=== PATIENT | female | born 1945 | race Caucasian/White ===

== ENCOUNTER 2019-04-16 09:54 | Emergency (ER) | payer MEDICARE, OTHER ==
[2019-04-16 10:12] VITALS: BP 132/76; PULSE 75
--- NOTE | 2019-04-16 11:48 | CR ---
Chest: 2 views of the chest were obtained. Comparison: No prior chest x-ray. Heart is mildly enlarged. Tortuous thoracic aorta is seen. Lungs are clear with no acute parenchymal change. Degenerative change is scattered within the spine. Impression: 1. Findings as noted above. Nothing acute is appreciated on 2 view chest x-ray. Diagnostic code #2
--- NOTE | 2019-04-16 12:12 | EDM.PDOC ---
ED HPI GENERAL MEDICAL PROBLEM - General Chief Complaint: Cardiovascular Problem Stated Complaint: LIGHTHEADED/WEAK Time Seen by Provider: 04/16/19 10:20 Source of Information: Reports: Patient History Limitations: Reports: No Limitations - History of Present Illness INITIAL COMMENTS - FREE TEXT/NARRATIVE: The patient presents with lightheadedness. She says this has been going on since this morning. It comes in waves. She denies chest pain or shortness of breath. She has no fever, chills, cough, abdominal pain, nausea or vomiting. She has no symptoms now. She says she felt like this when she got her stent in the past. She also had a history of atrial fib. She is on plavix and aspirin. Onset: Gradual Duration: Hour(s): Severity: Moderate Improves with: Reports: None Worsens with: Reports: None Associated Symptoms: Reports: No Other Symptoms - Related Data Allergies Allergy/AdvReac Type Severity Reaction Status Date / Time adhesive Allergy Rash Verified 04/16/19 10:12 Penicillins Allergy Rash Verified 04/16/19 10:12 meperidine HCl [From Demerol] AdvReac Drowsiness Verified 04/16/19 10:12 rosuvastatin calcium AdvReac Muscle Verified 04/16/19 10:12 [From Crestor] Aches simvastatin [From Zocor] AdvReac Muscle Verified 04/16/19 10:12 Aches Home Meds: Home Meds Aspirin [Eric Chewable Aspirin] 81 mg PO DAILY 10/28/14 [History] atorvaSTATin [Lipitor] 80 mg PO DAILY 10/28/14 [History] Levothyroxine [Levothroid] 137 mcg PO DAILY 12/26/14 [History] Aller Xt-Tree Pollen-Melaleuca [Melaleuca] 0 04/16/19 [History] Clopidogrel [Plavix] 75 mg PO DAILY 04/16/19 [History] Metoprolol Succinate 25 mg PO DAILY 04/16/19 [History] Past Medical History Other HEENT History: WEARS GLASSES Cardiovascular History: Reports: Stents Other Gastrointestinal History: RECTAL BLEEDING CURRENTLY Other Genitourinary History: URINARY FREQUENCY 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 Other Endocrine/Metabolic History: HYPOTHYROIDISM - Past Surgical History Other Musculoskeletal Surgeries/Procedures:: BILATERAL ESVIN Social & Family History - Tobacco Use Smoking Status *Q: Former Smoker Packs/Tins Daily: 1 Used Tobacco, but Quit: Yes Month/Year Tobacco Last Used: 10 years ago - Caffeine Use Caffeine Use: Reports: Coffee - Recreational Drug Use Recreational Drug Use: No ED ROS GENERAL - Review of Systems Review Of Systems: See Below Constitutional: Reports: No Symptoms HEENT: Reports: No Symptoms Respiratory: Reports: No Symptoms Cardiovascular: Reports: Lightheadedness. Denies: Chest Pain Endocrine: Reports: No Symptoms GI/Abdominal: Reports: No Symptoms : Reports: No Symptoms Musculoskeletal: Reports: No Symptoms ED EXAM, GENERAL - Physical Exam Exam: See Below Exam Limited By: No Limitations General Appearance: Alert, No Apparent Distress Ears: Normal External Exam Nose: Normal Inspection Head: Atraumatic, Normocephalic Neck: Normal Inspection Respiratory/Chest: No Respiratory Distress, Lungs Clear, Normal Breath Sounds Cardiovascular: No Edema, No Murmur, Irregularly Irregular GI/Abdominal: Soft, Non-Tender, No Organomegaly, No Mass Back Exam: Normal Inspection EKG INTERPRETATION EKG Date: 04/16/19 Time: 10:55 Rhythm: A-Fib Rate (Beats/Min): 69 [place]: Normal QRS: Normal ST-T: Normal QT: Normal Course - Vital Signs Last Recorded V/S: Last Vital Signs Temp 98.2 F 04/16/19 10:09 Pulse 75 04/16/19 10:09 Resp 16 04/16/19 10:09 BP 132/76 04/16/19 10:09 Pulse Ox 93 L 04/16/19 10:09 - Orders/Labs/Meds Orders: Active Orders 24 hr Category Date Time Status Cardiac Monitoring [RC] . DIRECTED Care 04/16/19 10:31 Active EKG 12 Lead [EKG Documentation Completion] [RC] STAT Care 04/16/19 10:24 Active Labs: Laboratory Tests 04/16/19 04/16/19 Range/Units 10:45 10:45 WBC 7.48 (3.98-10.04) K/mm3 RBC 4.92 (3.98-5.22) M/mm3 Hgb 15.1 (11.2-15.7) gm/dl Hct 45.8 H (34.1-44.9) % MCV 93.1 (79.4-94.8) fl MCH 30.7 (25.6-32.2) pg MCHC 33.0 (32.2-35.5) g/dl RDW Std Deviation 44.2 (36.4-46.3) fL Plt Count 222 (182-369) K/mm3 MPV 11.1 (9.4-12.3) fl Neut % (Auto) 61.9 (34.0-71.1) % Lymph % (Auto) 22.6 (19.3-51.7) % [place] % (Auto) 11.8 (4.7-12.5) % Eos % (Auto) 3.3 (0.7-5.8) Baso % (Auto) 0.3 (0.1-1.2) % Neut # (Auto) 4.63 (1.56-6.13) K/mm3 Lymph # (Auto) 1.69 (1.18-3.74) K/mm3 [place] # (Auto) 0.88 H (0.24-0.36) K/mm3 Eos # (Auto) 0.25 (0.04-0.36) K/mm3 Baso # (Auto) 0.02 (0.01-0.08) K/mm3 Sodium 141 (136-145) mEq/L Potassium 4.1 (3.5-5.1) mEq/L Chloride 104 (98-107) mEq/L Carbon Dioxide 28 (21-32) mEq/L Anion Gap 13.1 (5-15) BUN 17 (7-18) mg/dL Creatinine 0.9 (0.55-1.02) mg/dL Est Cr Clr Drug Dosing 50.09 mL/min Estimated GFR (MDRD) > 60 (>60) mL/min BUN/Creatinine Ratio 18.9 H (14-18) Glucose 91 (83-115) mg/dL Calcium 8.6 (8.5-10.1) mg/dL Total Bilirubin 0.6 (0.2-1.0) mg/dL AST 20 (15-37) U/L ALT 34 (14-59) U/L Alkaline Phosphatase 87 (46-116) U/L Troponin I < 0.017 (0.00-0.056) ng/mL Total Protein 6.4 (6.4-8.2) g/dl Albumin 3.3 L (3.4-5.0) g/dl Globulin 3.1 gm/dL Albumin/Globulin Ratio 1.1 (1-2) - Re-Assessments/Exams Free Text/Narrative Re-Assessment/Exam: 04/16/19 12:10 I ordered an EKG and labs. Her EKG shows atrial fib with no acute changes and at a normal rate. Her CBC and CMP look good. Her troponin is negative. 04/16/19 12:11 I am concerned her heart rate may be fast when she feels like this. I will get her on a holter monitor for a couple days. Departure - Departure Time of Disposition: 12:15 Disposition: Home, Self-Care 01 Condition: Good Clinical Impression: Lightheadedness Referrals: Mikayla Casas NP [Primary Care Provider] - 1 Week Additional Instructions: Wear the holter monitor for 48 hours. Take your medication as prescribed. Please return if you are worse. Follow up with your doctor within a week for results. - My Orders Last 24 Hours: My Active Orders 04/16/19 10:24 EKG 12 Lead [EKG Documentation Completion] [RC] STAT 04/16/19 10:31 Cardiac Monitoring [RC] . DIRECTED - Assessment/Plan Last 24 Hours: My Active Orders 04/16/19 10:24 EKG 12 Lead [EKG Documentation Completion] [RC] STAT 04/16/19 10:31 Cardiac Monitoring [RC] . DIRECTED
== END 2019-04-16 12:32 | disposition home or self-care (01) ==
LOC: JD.ED 09:54
DX: R42 Dizziness and giddiness (principal); I48.91 Unspecified atrial fibrillation; E03.9 Hypothyroidism, unspecified; Z88.5 Allergy status to narcotic agent; Z88.0 Allergy status to penicillin; Z88.8 Allergy status to other drugs, medicaments and biological substances; Z91.048 Other nonmedicinal substance allergy status; Z79.02 Long term (current) use of antithrombotics/antiplatelets; Z79.82 Long term (current) use of aspirin; Z79.890 Hormone replacement therapy; Z87.891 Personal history of nicotine dependence; Z95.5 Presence of coronary angioplasty implant and graft
CPT/HCPCS: 36415; 71046; 71046-26; 80053; 84484; 85025; 93005; 93010; 93225; 93226; 99283; 99284-25

== ENCOUNTER 2019-06-07 08:50 | Emergency (ER) | payer MEDICARE, OTHER ==
[2019-06-07 09:20] VITALS: PULSE 88
--- NOTE | 2019-06-07 09:54 | EDM.PDOC ---
ED HPI GENERAL MEDICAL PROBLEM - General Chief Complaint: Chest Pain Stated Complaint: CHEST PAIN Time Seen by Provider: 06/07/19 09:40 Source of Information: Reports: Patient History Limitations: Reports: No Limitations - History of Present Illness INITIAL COMMENTS - FREE TEXT/NARRATIVE: 74-year-old female presents to the ED for evaluation of some shortness of breath with a pleuritic chest pain component. Can't take a full deep breath. This morning chest pain seemed to get worse and radiate from the pit of the stomach up into her neck and throat. She is not prone to reflux disease. 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 Only medication change was discontinuation of Plavix and switched to Eliquis 10mg daily. She remains in atrial fibrillation on the monitor. She is aware of palpitations intermittently. Some dizziness and lightheadedness with standing at times as well. While in hospital she was told that she had pneumonia on her x -ray but was never treated with any antibiotics and never had a cough or sputum production. She denies any fevers. Onset: Gradual Onset Date: 05/25/19 Duration: Day(s):, Getting Worse Location: Reports: Chest (Central chest pressure discomfort rating up into her neck and throat not through to her back.), Other (Pleuritic component to her pain and she can't take a full deep breath.) Quality: Reports: Ache (Describes the discomfort as an aching pressure discomfort) Severity: Moderate (with pleurisy-like pain on deep inspiration) Improves with: Reports: Rest Worsens with: Reports: Other (Worse with standing and) Context: Denies: Activity (Walking.), Exercise, Lifting, Sick Contact, Trauma, Other Associated Symptoms: Reports: Chest Pain (Minimal with no production of sputum.) , Cough, Loss of Appetite, Malaise, Shortness of Breath, Weakness. Denies: No Other Symptoms ( I see history of present illness), Confusion, cough w sputum, Diaphoresis, Fever/Chills, Headaches, Nausea/Vomiting, Rash, Seizure, Syncope Treatments COAL CAGER: Reports: Other (see below) (None.) - Related Data Allergies Allergy/AdvReac Type Severity Reaction Status Date / Time adhesive Allergy Rash Verified 04/16/19 10:12 Penicillins Allergy Rash Verified 04/16/19 10:12 tramadol Allergy Nausea Verified 06/07/19 09:10 meperidine HCl [From Demerol] AdvReac Drowsiness Verified 04/16/19 10:12 rosuvastatin calcium AdvReac Muscle Verified 04/16/19 10:12 [From Crestor] Aches simvastatin [From Zocor] AdvReac Muscle Verified 04/16/19 10:12 Aches Home Meds: Home Meds Aspirin [Eric Chewable Aspirin] 81 mg PO DAILY 10/28/14 [History] atorvaSTATin [Lipitor] 80 mg PO DAILY 10/28/14 [History] Levothyroxine [Levothroid] 137 mcg PO DAILY 12/26/14 [History] Metoprolol Succinate 25 mg PO DAILY 04/16/19 [History] Apixaban [Eliquis] 10 mg PO DAILY 06/07/19 [History] Glucosamine/D3/Boswellia Marlene [Osteo Bi-Flex Caplet] 1 cap PO DAILY 06/07/19 [ History] Lutein/Minerals/Vit A,C & E [Ocuvite] 1 tab PO DAILY 06/07/19 [History] Multivit-Min/Iron/Folic/Lutein [Centrum Silver Women Tablet] 1 tab PO DAILY 09/21 [History] Mvmn/FA/Ala/Q10/L.aci,B.br,Richie [Vitabex Plus Capsule] 1 tab PO DAILY 06/07/19 [ History] predniSONE [Prednisone] 20 mg PO ASDIRECTED #14 tablet 06/07/19 [Rx] Past Medical History Other HEENT History: WEARS GLASSES Cardiovascular History: Reports: Afib (Recently started on Eliquis.), Pacemaker (Placed May [id number] due to persistent bradycardia i.e. 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 Endocrine/Metabolic History: Reports: Hypothyroidism Other Endocrine/Metabolic History: HYPOTHYROIDISM Hematologic History: Reports: Anticoagulation Therapy - Past Surgical History Cardiovascular Surgical History: Reports: Pacer Other Musculoskeletal Surgeries/Procedures:: BILATERAL ESVIN Social & Family History - Tobacco Use Smoking Status *Q: Former Smoker Years of Tobacco use: 50 Used Tobacco, but Quit: Yes Month/Year Tobacco Last Used: 10 years ago Second Hand Smoke Exposure: No - Caffeine Use Caffeine Use: Reports: Coffee - Recreational Drug Use Recreational Drug Use: No - Living Situation & Occupation Living situation: Reports: Occupation: Retired ED ROS GENERAL - Review of Systems Review Of Systems: See Below Constitutional: Reports: Malaise, Weakness, Fatigue, Decreased Appetite. Denies : Fever, Chills HEENT: Reports: Glasses Respiratory: Reports: Shortness of Breath, Pleuritic Chest Pain, Cough. Denies : Wheezing Cardiovascular: Reports: Chest Pain (Nonproductive), Blood Pressure Problem ( see history of present illness), Dyspnea on Exertion. Denies: Claudication, Edema, Lightheadedness, Orthopnea Endocrine: Reports: Fatigue GI/Abdominal: Reports: No Symptoms, Other (No odynophagia.) : Reports: No Symptoms Musculoskeletal: Reports: Joint Pain Skin: Reports: No Symptoms (Knees hips low back at times) Neurological: Reports: No Symptoms Psychiatric: Reports: No Symptoms Hematologic/Lymphatic: Reports: No Symptoms ED EXAM, GENERAL - Physical Exam Exam: See Below Exam Limited By: No Limitations General Appearance: Alert, WD/WN, No Apparent Distress, Other (Foci since to 36.8. Weight is 88 but atrial fibrillation on the monitor. O2 sats are 93% on room air. Respiratory rate of 18 BP elevated 150 10/04/00.) Eye Exam: Bilateral Eye: Normal Inspection (No scleral icterus or peripheral pallor.) Throat/Mouth: Normal Inspection, Normal Lips, Normal Oropharynx Head: Atraumatic, Normocephalic Neck: Normal Inspection, Supple, Non-Tender, Full Range of Motion. No: Carotid Bruit, Lymphadenopathy (L), Lymphadenopathy (R) Respiratory/Chest: No Respiratory Distress, No Accessory Muscle Use, Chest Non- Tender, Rales (Right lung base.), Other (Pacemaker insertion site looks good. There are a few Steri-Strips still over the wound but there is very little bruising. The area is nontender to palpation.) Cardiovascular: Normal Peripheral Pulses, Regular Rate, Rhythm, No Gallop, No Murmur, No Rub Peripheral Pulses: 2+: Posterior Tibial (L), Posterior Tibial (R), Dorsalis Pedis (L), Dorsalis Pedis (R) GI/Abdominal: Normal Bowel Sounds, Soft, Non-Tender, No Organomegaly, No Abnormal Bruit, No Mass, Pelvis Stable, Other (Infraumbilical midline incision where she had lumbar back fusion.) Back Exam: Normal Inspection, Full Range of Motion. No: CVA Tenderness (L), CVA Tenderness (R) Extremities: Normal Inspection, Normal Range of Motion, Non-Tender, Pedal Edema (Trace pedal edema right ankle and foot.) Neurological: Alert, Oriented, CN II-XII Intact, Normal Cognition, Normal Gait Psychiatric: Normal Affect, Normal Mood Skin Exam: Warm, Dry, Intact, Normal Color, No Rash EKG INTERPRETATION EKG Date: 06/07/19 Time: 08:58 Rhythm: A-Fib (With rate of 75-1 22/m) Rate (Beats/Min): 86 P-Wave: Absent QRS: Other (RSR prime wave in V1 and V2 consider normal variant) ST-T: Other (Diffuse T-wave changes in both precordial and limb leads with baseline wandering.) EKG Interpretation Comments: Abnormal ECG Course - Vital Signs Last Recorded V/S: Last Vital Signs Temp 36.8 C 06/07/19 09:11 Pulse 88 06/07/19 09:11 Resp 18 06/07/19 09:11 BP 117/85 06/07/19 10:16 Pulse Ox 93 L 06/07/19 09:11 - Orders/Labs/Meds Orders: Active Orders 24 hr Category Date Time Status EKG 12 Lead [EKG Documentation Completion] [RC] STAT Care 06/07/19 09:32 Active Peripheral IV Care [RC] . DIRECTED Care 06/07/19 10:01 Active Sodium Chloride 0.9% [Saline Flush] Med 06/07/19 10:01 Active 10 ml FLUSH ASDIRECTED PRN Peripheral IV Insertion Adult [OM.PC] Stat Oth 06/07/19 10:01 Ordered Medication Orders Sodium Chloride (Saline Flush) 10 ml FLUSH ASDIRECTED PRN PRN Reason: Keep Vein Open Labs: Laboratory Tests 06/07/19 06/07/19 06/07/19 Range/Units 10:00 10:00 10:00 WBC 9.50 (3.98-10.04) K/mm3 RBC 4.65 (3.98-5.22) M/mm3 Hgb 14.4 (11.2-15.7) gm/dl Hct 44.1 (34.1-44.9) % MCV 94.8 (79.4-94.8) fl MCH 31.0 (25.6-32.2) pg MCHC 32.7 (32.2-35.5) g/dl RDW Std Deviation 44.7 (36.4-46.3) fL Plt Count 222 (182-369) K/mm3 MPV 10.9 (9.4-12.3) fl Neut % (Auto) 72.2 H (34.0-71.1) % Lymph % (Auto) 14.9 L (19.3-51.7) % [place] % (Auto) 9.8 (4.7-12.5) % Eos % (Auto) 2.7 (0.7-5.8) Baso % (Auto) 0.2 (0.1-1.2) % Neut # (Auto) 6.85 H (1.56-6.13) K/mm3 Lymph # (Auto) 1.42 (1.18-3.74) K/mm3 [place] # (Auto) 0.93 H (0.24-0.36) K/mm3 Eos # (Auto) 0.26 (0.04-0.36) K/mm3 Baso # (Auto) 0.02 (0.01-0.08) K/mm3 D-Dimer, Quantitative 0.48 (0.19-0.50) mg/L Sodium (136-145) mEq/L Potassium (3.5-5.1) mEq/L Chloride (98-107) mEq/L Carbon Dioxide (21-32) mEq/L Anion Gap (5-15) BUN (7-18) mg/dL Creatinine (0.55-1.02) mg/dL Est Cr Clr Drug Dosing mL/min Estimated GFR (MDRD) (>60) mL/min BUN/Creatinine Ratio (14-18) Glucose (83-115) mg/dL Calcium (8.5-10.1) mg/dL Magnesium 2.2 (1.8-2.4) mg/dl Total Bilirubin (0.2-1.0) mg/dL AST (15-37) U/L ALT (14-59) U/L Alkaline Phosphatase (46-116) U/L CK-MB (CK-2) 1.0 (0-3.6) ng/ml Troponin I < 0.017 (0.00-0.056) ng/mL C-Reactive Protein < 0.2 (<1.0) mg/dL NT-Pro-B Natriuret Pep (0-125) pg/mL Total Protein (6.4-8.2) g/dl Albumin (3.4-5.0) g/dl Globulin gm/dL Albumin/Globulin Ratio (1-2) TSH 3rd Generation 0.614 (0.358-3.74) uIU/mL 06/07/19 06/07/19 Range/Units 10:00 10:00 WBC (3.98-10.04) K/mm3 RBC (3.98-5.22) M/mm3 Hgb (11.2-15.7) gm/dl Hct (34.1-44.9) % MCV (79.4-94.8) fl MCH (25.6-32.2) pg MCHC (32.2-35.5) g/dl RDW Std Deviation (36.4-46.3) fL Plt Count (182-369) K/mm3 MPV (9.4-12.3) fl Neut % (Auto) (34.0-71.1) % Lymph % (Auto) (19.3-51.7) % [place] % (Auto) (4.7-12.5) % Eos % (Auto) (0.7-5.8) Baso % (Auto) (0.1-1.2) % Neut # (Auto) (1.56-6.13) K/mm3 Lymph # (Auto) (1.18-3.74) K/mm3 [place] # (Auto) (0.24-0.36) K/mm3 Eos # (Auto) (0.04-0.36) K/mm3 Baso # (Auto) (0.01-0.08) K/mm3 D-Dimer, Quantitative (0.19-0.50) mg/L Sodium 142 (136-145) mEq/L Potassium 4.2 (3.5-5.1) mEq/L Chloride 104 (98-107) mEq/L Carbon Dioxide 26 (21-32) mEq/L Anion Gap 16.2 H (5-15) BUN 14 (7-18) mg/dL Creatinine 0.9 (0.55-1.02) mg/dL Est Cr Clr Drug Dosing 48.07 mL/min Estimated GFR (MDRD) > 60 (>60) mL/min BUN/Creatinine Ratio 15.6 (14-18) Glucose 90 (83-115) mg/dL Calcium 9.4 (8.5-10.1) mg/dL Magnesium (1.8-2.4) mg/dl Total Bilirubin 0.6 (0.2-1.0) mg/dL AST 24 (15-37) U/L ALT 29 (14-59) U/L Alkaline Phosphatase 97 (46-116) U/L CK-MB (CK-2) (0-3.6) ng/ml Troponin I (0.00-0.056) ng/mL C-Reactive Protein (<1.0) mg/dL NT-Pro-B Natriuret Pep 87 (0-125) pg/mL Total Protein 6.9 (6.4-8.2) g/dl Albumin 3.6 (3.4-5.0) g/dl Globulin 3.3 gm/dL Albumin/Globulin Ratio 1.1 (1-2) TSH 3rd Generation (0.358-3.74) uIU/mL Meds: Medications Generic Name Dose Route Start Last Admin Trade Name Freq PRN Reason Stop Dose Admin Sodium Chloride 10 ml 06/07/19 10:01 Saline Flush FLUSH ASDIRECTED PRN Keep Vein Open Discontinued Medications Generic Name Dose Route Start Last Admin Trade Name Freq PRN Reason Stop Dose Admin Ketorolac Tromethamine 60 mg 06/07/19 12:38 06/07/19 12:44 Toradol IM 06/07/19 12:39 60 mg ONETIME ONE Administration Prednisone 20 mg 06/07/19 12:39 06/07/19 12:44 Prednisone PO 06/07/19 12:40 20 mg ONETIME ONE Administration - Radiology Interpretation Free Text/Narrative:: 74-year-old female presents to the ED with some shortness of breath and some central chest pain discomfort off and on for the last several days. Worse this morning. Seem to radiate up into her throat this morning. No odynophagia and no real GERD symptoms. She has chronic atrial fibrillation and was recently switched from Plavix to Eliquis after having pacemaker inserted left upper anterior chest for bradycardia. She's not aware of the pacemaker firing. Current rhythm on ECG is atrial fibrillation with a rate of 75-1 22/m. Baseline rate however is in the 80s. There are few crackles in the right lung base. O2 sats are 93% on room air. Plan saline lock. Plan routine labs including cardiac markers and d-dimer. Serum magnesium and TSH to be done as well. She states her thyroid medication was reduced about 2 months ago. BNP to be done as well. One chest x-ray - Re-Assessments/Exams Free Text/Narrative Re-Assessment/Exam: 06/07/19 10:12 chest x-ray reveals poor inspiratory view. There is slight haziness in the left costophrenic angle cannot rule out a little bit of fluid in this area. Pacemaker left upper anterior chest. Headache silhouette is upper limits of normal in size magnified by portable technique. Visualized portion of the lungs appear clear. 06/07/19 11:49 Labs reveal a normal white count at 9.50. Auto differential shows 72.2% neutrophils. Hemoglobin is 14.4 with hematocrit of 44.1. Platelet count 222,000. D-dimer is 0.48. Magnesium is 2.2 CK-MB fraction 1.0 troponin I is less than 0.017 C-reactive protein is less than 0.2. BNP is 87 TSH is 0.614 06/07/19 12:30 Chemistry is now back showing a normal sodium of 142. Potassium is 4.2. Chloride 104 the bicarbonate 26. Anion gap is 16.2 slightly elevated. BUN is 14 with a creatinine of 0.9. GFR is greater than 60. Glucose is 90 with a calcium of 9.4 magnesium is 2.2 there are function is normal CK-MB fraction is 1.0 06/07/19 12:41 and went over the findings of the labs which were all normal. Chest x-ray is within normal limits essentially as well. Her atrial fibrillation rate seems to be well-controlled at rest in the 80s and perhaps 95 range. She is complaining of diffuse chest discomfort however. It appears to be chest wall in origin pleuritic-like. She cannot take anti-inflammatories because she is on Eliquis. I will give her 1 dose of Toradol IM since an IV never did get started. Even 60 mg IM. We'll also give her prednisone 20 mg by mouth. Difficulty in finding medication to control her pain. Tramadol has caused extensive nausea and vomiting and postoperative answer some likely to do the same. 06/07/19 13:58 patient is feeling better still has some pain in her chest but overall 70% improved. I'm reluctant to send her home on any pain medicine because almost all of them make her very nauseated. She will use Tylenol. Going to place her on a short course of prednisone 20 mg twice a day for 5 days and then 1 tablet in morning only for another 4 days to see if we can reduce the inflammation in her chest as it's almost pleuritic in nature. She will return to the ED or follow up with her personal care physician if not getting better. 40-72 hours. Departure - Departure Time of Disposition: 14:00 Disposition: Home, Self-Care 01 Condition: Fair Clinical Impression: Non-cardiac chest pain, Acute chest wall pain - Discharge Information *PRESCRIPTION DRUG MONITORING PROGRAM REVIEWED*: Not Applicable *COPY OF PRESCRIPTION DRUG MONITORING REPORT IN PATIENT DAISY: Not Applicable Prescriptions: predniSONE [Prednisone] 20 mg PO ASDIRECTED #14 tablet Instructions: Nonspecific Chest Pain, [id number] Referrals: Mikayla Casas NP [Primary Care Provider] - Forms: ED Department Discharge Additional Instructions: Evaluation the emergency room this morning in regards to diffuse chest pain with a pleuritic component meaning it's worsened by deep breathing. X-ray shows no signs of infection although is a poor inspirational view. Tests revealed no evidence of heart related illness with normal cardiac markers and also negative testing for any blood clots in the lung. There is no extra fluid buildup in the lungs or heart failure. It appears that the pain is chest wall in origin or inflammation of the lung lining. This most often is viral in origin. Due to problems with nausea and vomiting from pain medication it is felt that Tylenol 650 mg every 6 hours is okay to relieve pain. I have placed her on a course of prednisone 20 mg twice daily for 5 days with breakfast and supper and then once in the morning again for another 5 days to relieve inflammation in the chest wall. This medication is safe to take with your blood thinner Eliquis. Expect gradual improvement over the next 36-48 hours as the prednisone begins to work its anti-inflammatory effect. If not markedly improved in 72 hours you should be seen again by her personal care physician or return to the ED. - My Orders Last 24 Hours: My Active Orders 06/07/19 09:32 EKG 12 Lead [EKG Documentation Completion] [RC] STAT 06/07/19 10:01 Peripheral IV Care [RC] . DIRECTED Sodium Chloride 0.9% [Saline Flush] 10 ml FLUSH ASDIRECTED PRN Peripheral IV Insertion Adult [OM.PC] Stat - Assessment/Plan Last 24 Hours: My Active Orders 06/07/19 09:32 EKG 12 Lead [EKG Documentation Completion] [RC] STAT 06/07/19 10:01 Peripheral IV Care [RC] . DIRECTED Sodium Chloride 0.9% [Saline Flush] 10 ml FLUSH ASDIRECTED PRN Peripheral IV Insertion Adult [OM.PC] Stat
[2019-06-07] MEDS ORDERED: Sodium Chloride 0.9% 10 ML Syringe FLUSH PRN (10:01)
[2019-06-07 10:17] VITALS: BP 117/85
--- NOTE | 2019-06-07 10:50 | CR ---
Chest: Portable view of the chest was obtained. Comparison: Prior chest x-ray of 04/16/19. Heart size and mediastinum are within normal limits for portable technique. Bichamber pacemaker is noted which is an interval change from previous exam. Lungs are clear with no acute parenchymal change. Mild scoliosis is noted within the spine. Impression: 1. Findings as noted above. 2. Nothing acute is appreciated on portable chest x-ray. Diagnostic code #2 This report was dictated in [place] Standard Time
[2019-06-07] MEDS ORDERED: Ketorolac 60 MG/2 ML SDV IM ONE (12:38)
[2019-06-07] MEDS ORDERED: predniSONE 20 MG Tab PO ONE (12:39)
== END 2019-06-07 14:20 | disposition home or self-care (01) ==
LOC: JD.ED 08:50
DX: R07.89 Other chest pain (principal); I48.20 Chronic atrial fibrillation, unspecified; E03.9 Hypothyroidism, unspecified; Z88.5 Allergy status to narcotic agent; Z88.0 Allergy status to penicillin; Z88.8 Allergy status to other drugs, medicaments and biological substances; Z91.048 Other nonmedicinal substance allergy status; Z79.01 Long term (current) use of anticoagulants; Z95.5 Presence of coronary angioplasty implant and graft; Z95.0 Presence of cardiac pacemaker; Z79.890 Hormone replacement therapy; Z79.899 Other long term (current) drug therapy; Z79.82 Long term (current) use of aspirin; Z87.891 Personal history of nicotine dependence
CPT/HCPCS: 36415; 71045; 80053; 82553; 83735; 83880; 84443; 84484; 85025; 85379; 86140; 93005; 96372; 99285; A9270; J1885; 93010; 99284

== ENCOUNTER 2021-05-03 19:50 | Emergency (ER) | payer MEDICARE, OTHER ==
[2021-05-03 20:16] VITALS: BP 118/70; PULSE 60
--- NOTE | 2021-05-03 20:52 | EDM.PDOC ---
ED HPI GENERAL MEDICAL PROBLEM - General Chief Complaint: General Stated Complaint: BLOOD IN STOOLS Time Seen by Provider: 05/03/21 20:58 - History of Present Illness INITIAL COMMENTS - FREE TEXT/NARRATIVE: 76-year-old female presents the emergency room with rectal bleeding. Patient states she has had rectal bleeding on and off for the last couple of days but it became really prominent bright red. Patient knows she has hemor rhoids. Patient is also on Eliquis 5 mg twice daily she has been on Eliquis for 3 years she was placed on it for atrial fibrillation. She denies any nausea or vomiting. Patient does have problems with being lightheaded with change of position and she is having some weakness at this time. She has no other complaints at this time. Abdomen Pain Score (Numeric/FACES): 10 - Related Data Allergies Allergy/AdvReac Type Severity Reaction Status Date / Time adhesive Allergy Rash Verified 04/16/19 10:12 Penicillins Allergy Rash Verified 04/16/19 10:12 tramadol Allergy Nausea Verified 06/07/19 09:10 meperidine HCl [From Demerol] AdvReac Drowsiness Verified 04/16/19 10:12 rosuvastatin calcium AdvReac Muscle Verified 04/16/19 10:12 [From Crestor] Aches simvastatin [From Zocor] AdvReac Muscle Verified 04/16/19 10:12 Aches Home Meds: Home Meds Aspirin [Eric Chewable Aspirin] 81 mg PO DAILY 10/28/14 [History] atorvaSTATin [Lipitor] 80 mg PO DAILY 10/28/14 [History] Levothyroxine [Levothroid] 125 mcg PO DAILY 12/26/14 [History] Apixaban [Eliquis] 5 mg PO BID 06/07/19 [History] Glucosamine/D3/Boswellia Marlene [Osteo Bi-Flex Caplet] 2 cap PO DAILY 06/07/19 [History] Lutein/Minerals/Vit A,C & E [Ocuvite] 1 tab PO DAILY 06/07/19 [History] Multivit-Min/Iron/Folic/Lutein [Centrum Silver Women Tablet] 1 tab PO DAILY 06/07/19 [History] Chlorhexidine Gluconate [Peridex 0.12% Rinse] 1 capful PO DAILY 05/03/21 [History] Cholecalciferol (Vitamin D3) [Vitamin D3] 125 mcg PO DAILY 05/03/21 [History] Diltiazem [Cardizem CD] 120 mg PO DAILY 05/03/21 [History] Lysine HCl [l-Lysine] 1 tab PO DAILY 05/03/21 [History] [place]-3S/DHA/Epa/Fish Oil/D3 [[place]-3 + D Softgel] 1 tab PO DAILY 05/03/21 [History] Omeprazole 20 mg PO DAILY 05/03/21 [History] Soft Mint 1 tab PO BEDTIME 05/03/21 [History] [place] V2 1 tab PO BID 05/03/21 [History] Ubidecarenone [Coq-10] 400 mg PO DAILY 05/03/21 [History] Past Medical History Other HEENT History: WEARS GLASSES Cardiovascular History: Reports: Afib, Pacemaker, Stents Other Cardiovascular History: bradycardia Other Respiratory History: recent dx of pneumonia Other Gastrointestinal History: RECTAL BLEEDING CURRENTLY Other Genitourinary History: URINARY FREQUENCY 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 Endocrine/Metabolic History: Reports: Hypothyroidism Other Endocrine/Metabolic History: HYPOTHYROIDISM Hematologic History: Reports: Anticoagulation Therapy - Infectious Disease History Infectious Disease History: Reports: Chicken Pox - Past Surgical History Cardiovascular Surgical History: Reports: Pacer Other Musculoskeletal Surgeries/Procedures:: BILATERAL ESVIN Social & Family History - Tobacco Use Tobacco Use Status *Q: Former Tobacco User Used Tobacco, but Quit: Yes Month/Year Tobacco Last Used: 2008 - Caffeine Use Caffeine Use: Reports: Coffee - Recreational Drug Use Recreational Drug Use: Yes Recreational Drug Type: Reports: Marijuana/Hashish Recreational Drug Use Frequency: Rarely - Living Situation & Occupation Living situation: Reports: Occupation: Retired ED ROS GENERAL - Review of Systems Review Of Systems: See Below Constitutional: Reports: No Symptoms, Weakness, Fatigue. Denies: Fever, Chills HEENT: Reports: No Symptoms Respiratory: Reports: No Symptoms Cardiovascular: Reports: No Symptoms Endocrine: Reports: No Symptoms GI/Abdominal: Reports: No Symptoms : Reports: No Symptoms Musculoskeletal: Reports: No Symptoms Skin: Reports: No Symptoms Neurological: Reports: No Symptoms Hematologic/Lymphatic: Reports: Easy Bleeding (Secondary to anticoagulation therapy) ED EXAM, GENERAL - Physical Exam Exam: See Below Exam Limited By: No Limitations General Appearance: Alert, No Apparent Distress Head: Atraumatic, Normocephalic Neck: Normal Inspection, Supple, Non-Tender, Full Range of Motion Respiratory/Chest: No Respiratory Distress, Lungs Clear, Normal Breath Sounds Cardiovascular: Regular Rate, Rhythm, No Edema, No Murmur GI/Abdominal: Normal Bowel Sounds, Soft, Non-Tender Rectal (Female) Exam: Heme + Stool, Hemorrhoids (Significant external hemorrhoids she may well have a fissure as well.) Back Exam: Normal Inspection. No: CVA Tenderness (L), CVA Tenderness (R) Neurological: Alert, Oriented, Normal Cognition Course - Vital Signs Last Recorded V/S: Last Vital Signs Temp 36.4 C 05/03/21 20:14 Pulse 60 05/03/21 20:14 Resp 20 05/03/21 20:14 BP 118/70 05/03/21 20:14 Pulse Ox 91 L 05/03/21 20:14 - Orders/Labs/Meds Orders: Active Orders 24 hr Category Date Time Status KUB [Abdomen 1V Flat] [CR] Stat Exams 05/03/21 21:16 Taken Potassium Chloride [Klor-Con M20] Med 05/04/21 21:00 Ordered 40 meq PO BEDTIME Medication Orders Potassium Chloride (Potassium Chloride 20 Meq Tab.Er) 40 meq PO BEDTIME YOLY Labs: Laboratory Tests 05/03/21 05/03/21 05/03/21 Range/Units 21:30 21:30 21:30 WBC 6.41 (3.98-10.04) K/mm3 RBC 4.25 (3.98-5.22) M/mm3 Hgb 13.1 (11.2-15.7) gm/dl Hct 40.6 (34.1-44.9) % MCV 95.5 H (79.4-94.8) fl MCH 30.8 (25.6-32.2) pg MCHC 32.3 (32.2-35.5) g/dl RDW Std Deviation 45.3 (36.4-46.3) fL Plt Count 243 (182-369) K/mm3 MPV 10.4 (9.4-12.3) fl Neut % (Auto) 65.0 (34.0-71.1) % Lymph % (Auto) 20.6 (19.3-51.7) % [place]offey % (Auto) 11.4 (4.7-12.5) % Eos % (Auto) 2.5 (0.7-5.8) Baso % (Auto) 0.2 (0.1-1.2) % Neut # (Auto) 4.17 (1.56-6.13) K/mm3 Lymph # (Auto) 1.32 (1.18-3.74) K/mm3 [place]y # (Auto) 0.73 H (0.24-0.36) K/mm3 Eos # (Auto) 0.16 (0.04-0.36) K/mm3 Baso # (Auto) 0.01 (0.01-0.08) K/mm3 PT 10.9 (9.7-12.0) SECONDS INR 0.98 APTT 30.5 (21.7-31.4) SECONDS Sodium 141 (136-145) mEq/L Potassium 3.3 L (3.5-5.1) mEq/L Chloride 105 (98-107) mEq/L Carbon Dioxide 30 (21-32) mEq/L Anion Gap 9.3 (5-15) BUN 13 (7-18) mg/dL Creatinine 0.8 (0.55-1.02) mg/dL Est Cr Clr Drug Dosing 52.47 mL/min Estimated GFR (MDRD) > 60 (>60) mL/min BUN/Creatinine Ratio 16.3 (14-18) Glucose 96 (70-99) mg/dL Calcium 8.0 L (8.5-10.1) mg/dL Total Bilirubin 0.6 (0.2-1.0) mg/dL AST 17 (15-37) U/L ALT 20 (14-59) U/L Alkaline Phosphatase 68 (46-116) U/L Total Protein 6.2 L (6.4-8.2) g/dl Albumin 2.8 L (3.4-5.0) g/dl Globulin 3.4 gm/dL Albumin/Globulin Ratio 0.8 L (1-2) Meds: Medications Generic Name Dose Route Start Last Admin Trade Name Freq PRN Reason Stop Dose Admin Potassium Chloride 40 meq 05/04/21 21:00 Potassium Chloride 20 Meq Tab.Er PO BEDTIME YOLY - Re-Assessments/Exams Free Text/Narrative Re-Assessment/Exam: 05/03/21 22:51 Is reviewed hemoglobin hematocrit stable potassium is a little low we will give 40 mEq of oral potassium. After rectal exam I think she would benefit from sitz bath's four times a day Preparation H after every BM and 1% hydrocortisone cream twice daily. Departure - Departure Time of Disposition: 22:52 Disposition: Home, Self-Care 01 Clinical Impression: Hemorrhoids - Discharge Information Referrals: Alba Rodriguez [facility] [Primary Care Provider] - Forms: ED Department Discharge Additional Instructions: Return to the emergency room with any questions problems or worsening symptoms. Sitz baths and warm Epson salt solution every 4-6 hours minimum four times a day. Use Preparation H after every BM and every sitz bath. Use 1% hydrocortisone cream twice daily for 7 days. Follow-up in the clinic for recheck this next week. Sepsis Event Note (ED) - Focused Exam Vital Signs: Vital Signs Temp Pulse Resp BP Pulse Ox 05/03/21 20:14 36.4 C 60 20 118/70 91 L - My Orders Last 24 Hours: My Active Orders 05/03/21 21:16 KUB [Abdomen 1V Flat] [CR] Stat 05/04/21 21:00 Potassium Chloride [Klor-Con M20] 40 meq PO BEDTIME - Assessment/Plan Last 24 Hours: My Active Orders 05/03/21 21:16 KUB [Abdomen 1V Flat] [CR] Stat 05/04/21 21:00 Potassium Chloride [Klor-Con M20] 40 meq PO BEDTIME
[2021-05-03] MEDS ORDERED: Potassium Chloride 20 MEQ Tab.ER PO ONE (22:51)
--- NOTE | 2021-05-04 07:01 | CR ---
Abdomen: Supine view of the abdomen was obtained. Comparison: Sat Instructor film for barium enema study dated 12/27/14. Bilateral hip prostheses are noted. Degenerative change is seen within the spine with prior lumbar spine surgery. Bowel gas pattern appears within normal limits. Phleboliths are seen within the pelvis. Questionable calcifications overlying the left kidney are seen possibly due to nonobstructing renal calculi. Slight bony density is seen off the lateral left iliac wing compatible with old injury. Impression: 1. Probable chronic findings as noted above. 2. Nothing acute is seen. Diagnostic code #2
[2021-05-04] MEDS ORDERED: Potassium Chloride 20 MEQ Tab.ER PO SCH (21:00)
== END 2021-05-03 23:00 | disposition home or self-care (01) ==
LOC: JD.ED 19:50
DX: K64.4 Residual hemorrhoidal skin tags (principal); I48.91 Unspecified atrial fibrillation; E03.9 Hypothyroidism, unspecified; Z95.0 Presence of cardiac pacemaker; Z88.0 Allergy status to penicillin; Z88.5 Allergy status to narcotic agent; Z91.048 Other nonmedicinal substance allergy status; Z88.8 Allergy status to other drugs, medicaments and biological substances; Z79.899 Other long term (current) drug therapy; Z79.82 Long term (current) use of aspirin; Z79.01 Long term (current) use of anticoagulants; Z87.891 Personal history of nicotine dependence
CPT/HCPCS: 36415; 74018; 80053; 85025; 85610; 85730; 99283; A9270

== ENCOUNTER → 2021-10-10 | Day surgery (SDC) | payer MEDICARE, OTHER ==
[~2021-10-10] MED LIST: Bupivacaine 0.25% 10 ML SDV ONE; Lactated Ringers 1,000 ML IV SCH; Lidocaine 1% 6 ML ONE; Lidocaine 1%/Sod Bicarbonate in NS 8.4% 1 ML Syringe IDERM PRN; Sodium Chloride 0.9% 10 ML Syringe FLUSH PRN; Sodium Chloride 0.9% 10 ML Syringe FLUSH SCH; ceFAZolin 2 GM in Sodium Chloride 0.9% 50 ML IV SCH
[2021-10-10 07:36] VITALS: BP 134/67; PULSE 68
== END | disposition home or self-care (01) ==
LOC: JD.SDS 06:26
PROVIDERS: ATTEND Orthopaedic Surgery
DX: M65.841 Other synovitis and tenosynovitis, right hand (principal); I48.0 Paroxysmal atrial fibrillation; E03.9 Hypothyroidism, unspecified; J06.9 Acute upper respiratory infection, unspecified; R06.83 Snoring; R53.83 Other fatigue; E78.5 Hyperlipidemia, unspecified; Z79.899 Other long term (current) drug therapy; Z79.890 Hormone replacement therapy; Z88.0 Allergy status to penicillin; Z88.8 Allergy status to other drugs, medicaments and biological substances; Z98.890 Other specified postprocedural states; Z87.891 Personal history of nicotine dependence
CPT/HCPCS: 26055; J0690; J3490

== ENCOUNTER 2025-02-02 08:48 | Day surgery (SDC) | payer MEDICARE, BC ==
[~2025-02-02 08:48] MED LIST changes: -Bupivacaine 0.25% 10 ML SDV ONE; -Lactated Ringers 1,000 ML IV SCH; -Lidocaine 1% 6 ML ONE; -Lidocaine 1%/Sod Bicarbonate in NS 8.4% 1 ML Syringe IDERM PRN; -ceFAZolin 2 GM in Sodium Chloride 0.9% 50 ML IV SCH
[2025-02-02] MEDS: Lactated Ringers 1,000 ML IV SCH (09:15)
[2025-02-02] MEDS ORDERED: Lidocaine 1% 4 ML ONE (10:13)
[2025-02-02] MEDS ORDERED: Propofol 200 MG/20 ML SDV ONE (10:13)
[2025-02-02 12:54] VITALS: BP 132/78; PULSE 78
== END 2025-02-02 11:27 | disposition home or self-care (01) ==
LOC: JD.SDS 08:48
PROVIDERS: ATTEND Surgery
DX: D12.8 Benign neoplasm of rectum (principal); K56.699 Other intestinal obstruction unspecified as to partial versus complete obstruction; K64.3 Fourth degree hemorrhoids; K57.31 Diverticulosis of large intestine without perforation or abscess with bleeding; E03.9 Hypothyroidism, unspecified; E78.00 Pure hypercholesterolemia, unspecified; I48.91 Unspecified atrial fibrillation; Z88.8 Allergy status to other drugs, medicaments and biological substances; Z88.0 Allergy status to penicillin; Z79.82 Long term (current) use of aspirin; Z79.899 Other long term (current) drug therapy; Z79.01 Long term (current) use of anticoagulants; Z79.890 Hormone replacement therapy; Z87.891 Personal history of nicotine dependence
CPT/HCPCS: 45338; J2003; J2704; J7120; 00811; 88305; 99100